=== PATIENT | female | born 1995 | race Caucasian/White ===

== ENCOUNTER 2017-12-11 21:37 | Emergency (ER) | payer SELFPAY ==
[~2017-12-11] VITALS: Ht 165.1 cm; Wt 82.9 kg
[~2017-12-11 21:37] MED LIST: ADVAIR HFA120 INHALA IH; DUONEB 2.5-0.5 M3 ML AEROSOL; KEPPRA1000 MG PO; LEVOFLOXACIN750 MG PO; PREDNISONE10 MG PO; PRILOSEC40 MG PO; PROAIR HFA8.5 GM IH; SINGULAIR10 MG PO; TAMIFLU75 MG PO; VENTOLIN HFA18 GM IH; ZITHROMAX Z-PA250 MG PO
[2017-12-11] MEDS ORDERED: PROVENTIL HFA6.7 GM IH (22:38)
[2017-12-11] MEDS ORDERED: PREDNISONE50 MG PO (22:38)
[2017-12-11 23:36] VITALS: BP 115/85
== END 2017-12-11 23:38 | disposition home or self-care (01) ==
LOC: EME 21:37
PROVIDERS: Emergency Medicine
DX: J20.9 Acute bronchitis, unspecified (principal); J45.909 Unspecified asthma, uncomplicated; F17.200 Nicotine dependence, unspecified, uncomplicated; Z71.6 Tobacco abuse counseling; F32.9 Major depressive disorder, single episode, unspecified; Z88.5 Allergy status to narcotic agent; Z88.2 Allergy status to sulfonamides; Z88.0 Allergy status to penicillin; Z88.8 Allergy status to other drugs, medicaments and biological substances
CPT/HCPCS: 71046; 87502; 94640; 99281; 99284; J7512